=== PATIENT | male | born 1955 | race Caucasian/White ===

== ENCOUNTER 2017-03-10 14:26 | Emergency (ER) | payer SELFPAY ==
[~2017-03-10] VITALS: Ht 167.6 cm; Wt 83.3 kg
[2017-03-10 14:56] LABS: HEMATOCRIT 40.2 % (38.0-50.0); HEMOGLOBIN 13.6 G/DL (12.5-16.6); MCHC 33.8 G/DL (30.0-36.0); MCV 88.5 FL (86-99); PLATELET COUNT 326 K/uL (156-360); RBC DIS.WIDTH-CV 12.2 % (11.8-14.6); RED BLOOD COUNT 4.54 M/uL (4.00-5.50); WHITE BLOOD COUNT 8.1 K/uL (4.1-10.2)
[2017-03-10 15:11] LABS: CHLORIDE 105 mEq/L (99-109); SODIUM 138 mEq/L (136-147)
[2017-03-10 15:12] LABS: GLUCOSE 112 mg/dL (70-99)
[2017-03-10 15:17] LABS: UREA NITROGEN (BUN) 15 mg/dL (9-23)
[2017-03-10 15:19] LABS: GFR ESTIMATE (CALCULATED) > 59 mL/min/ (58.99-99999)
[2017-03-10 16:47] VITALS: BP 172/107
== END 2017-03-10 16:49 | disposition left against medical advice (07) ==
LOC: EME 14:26 → ENRESERV 16:19 → CANRESERV 16:46 → EME 16:49
DX: R29.810 Facial weakness (principal); R47.81 Slurred speech; R20.0 Anesthesia of skin; R06.02 Shortness of breath; Z53.29 Procedure and treatment not carried out because of patient's decision for other reasons
CPT/HCPCS: 70450; 71046; 80048; 85027; 93005

== ENCOUNTER 2017-04-19 10:05 | Day surgery (SDC) | payer SELFPAY ==
[~2017-04-19] VITALS: Ht 167.6 cm; Wt 83.5 kg
[~2017-04-19 10:05] MED LIST: ASPIR-LOW81 MG PO; ATORVASTATIN CA40 MG PO; LISINOPRIL10 MG PO
[2017-04-19] MEDS ORDERED: METOPROLOL SUCC25 MG PO (11:57)
== END 2017-04-19 16:50 | disposition home or self-care (01) ==
LOC: CATH 10:05
DX: I25.10 Atherosclerotic heart disease of native coronary artery without angina pectoris (principal); I10 Essential (primary) hypertension; I69.392 Facial weakness following cerebral infarction; Z82.49 Family history of ischemic heart disease and other diseases of the circulatory system; Z79.82 Long term (current) use of aspirin
CPT/HCPCS: C1769; C1887; J1644; J2250; J3010; J7040